=== PATIENT | male | born 1975 | race African-American/Black ===

== ENCOUNTER 2021-11-27 16:12 | Observation (INO) | payer OTHER ==
[~2021-11-27] VITALS: Ht 162.6 cm; Wt 76.0 kg
[2021-11-27 16:25] VITALS: BP 130/90; TEMP 98.8
[2021-11-27 16:59] LABS: PLATELET COUNT 266 K/uL (142-355)
[2021-11-27 17:08] LABS: POTASSIUM 3.8 mmol/L (3.6-5.2)
[2021-11-27 20:25] VITALS: BP 143/72; TEMP 98.3
[2021-11-28 00:01] VITALS: BP 107/68; TEMP 98
[2021-11-28 02:39] VITALS: BP 127/75; TEMP 98.3; Ht 162.6 cm; Wt 76.0 kg
[2021-11-28 04:00] VITALS: BP 120/66; TEMP 98.2
[2021-11-28 08:17] VITALS: BP 117/64; TEMP 98.2
[2021-11-28 12:00] VITALS: BP 121/69; TEMP 97.8
== END 2021-11-28 16:00 | disposition home or self-care (01) ==
LOC: ED 16:12 → MED/SURG 19:40
PROVIDERS: Family Medicine; ADMIT Internal Medicine; ATTEND Internal Medicine
DX: K92.1 Melena (principal)
CPT/HCPCS: 36415; 80053; 81000; 82150; 82272; 83690; 85014; 85018; 85027; 85610; 85730; 87635; 96361; 96374; 96375; 99220; 99283; G0378; U0003